=== PATIENT | male | born 1955 | race Caucasian/White ===

== ENCOUNTER 2021-06-12 09:42 | Inpatient (IN) ==
[2021-06-12 10:12] LABS: Basophils # 0.1 K/mcL (0.0-0.2); Basophils % 0.3 %; Eosinophils # 0.3 K/mcL (0.0-0.6); Eosinophils % 1.5 %; Hematocrit 51.3 % (37.5-50.1); Hemoglobin 16.9 g/dL (12.9-16.9); Immature Granulocytes % 0.9 % (0-4); Lymphocytes # 2.2 K/mcL (0.6-4.6); Lymphocytes % 12.4 %; Mean Corpuscular HGB Conc 32.9 g/dL (31.6-35.5); Mean Corpuscular Hemoglobin 30.2 pg (28.0-33.3); Mean Corpuscular Volume 91.6 fL (83.0-100.0); Monocytes # 1.4 K/mcL (0.0-1.3); Monocytes % 7.9 %; Neutrophils # 13.5 K/mcL (1.6-8.9); Platelet Count 193 K/mcL (140-400); Red Cell Distribution Width 14.6 % (11.5-14.5); White Blood Count 17.5 K/mcL (4.3-11.1)
[2021-06-12 10:30] LABS: BUN/Creatinine Ratio 21 (6-26); Blood Urea Nitrogen 29 mg/dL (8-23); Calcium 10.3 mg/dL (8.6-10.3); Carbon Dioxide 30 mEq/L (23-29); Chloride 100 mEq/L (98-107); Glucose 102 mg/dL (70-105); Osmolality,Calculated 288 (280-300); Potassium 4.9 mEq/L (3.5-5.1); Sodium 136 mEq/L (136-145); eGFR For African Americans > 60 (> 60); eGFR For Non-African Americans 50 (> 60)
[2021-06-12 10:37] LABS: Troponin I < 0.03 ng/mL (< 0.04)
[2021-06-12] MEDS ORDERED: *HR* FentaNYL (PF) 100 MCG/2 ML VIAL IVP ONE (11:28)
[2021-06-12] MEDS ORDERED: Acetaminophen 325 MG TABLET PO PRN (13:06)
[2021-06-12] MEDS ORDERED: Naloxone 0.4 MG/ML INJ IVP PRN (13:06)
[2021-06-12] MEDS ORDERED: Ondansetron 4 MG/2 ML VIAL IVP PRN (13:06)
[2021-06-12] MEDS ORDERED: Dextrose Gel 15 GM/37.5 ML TUBE PO PRN ×2 (13:12)
[2021-06-12] MEDS ORDERED: D5% in Water 1,000 ML IVC PRN (13:12)
[2021-06-12] MEDS ORDERED: *HR* Dextrose 50 % in Water (Vial) 50 ML VIAL IVP PRN (13:12)
[2021-06-12] MEDS ORDERED: Gadolinium Contrast Agent (WT Based) IV PRN (14:45)
[2021-06-12] MEDS ORDERED: *HR* LORazepam 2 MG/ML VIAL IVP ONE ×2 (15:02→18:45)
[2021-06-12] MEDS: Insulin LISPRO 300 UNITS/3 ML VIAL SUBQ SCH ×2 (18:02→20:46)
[2021-06-12] MEDS ORDERED: 0.9 % Sodium Chloride 1,000 ML IVC SCH (18:15)
[2021-06-12] MEDS: *HR* OxyCODONE/APAP 5/325 TABLET PO PRN (18:52)
[2021-06-12] MEDS ORDERED: GADOBUTROL 30 MMOL/30 ML VIAL IVP ONE (19:38)
[2021-06-12] MEDS: Ringers Solution, Lactated 1,000 ML IVC SCH (20:45)
[2021-06-13 05:32] LABS: Basophils # 0.1 K/mcL (0.0-0.2); Basophils % 0.6 %; Eosinophils # 0.5 K/mcL (0.0-0.6); Eosinophils % 3.3 %; Hematocrit 48.2 % (37.5-50.1); Hemoglobin 15.6 g/dL (12.9-16.9); Immature Granulocytes % 0.8 % (0-4); Lymphocytes # 2.6 K/mcL (0.6-4.6); Lymphocytes % 18.1 %; Mean Corpuscular HGB Conc 32.4 g/dL (31.6-35.5); Mean Corpuscular Hemoglobin 30.3 pg (28.0-33.3); Mean Corpuscular Volume 93.6 fL (83.0-100.0); Mean Platelet Volume 11.4 fL (9.4-12.4); Monocytes # 1.7 K/mcL (0.0-1.3); Monocytes % 11.8 %; Neutrophils # 9.3 K/mcL (1.6-8.9); Platelet Count 175 K/mcL (140-400); Red Blood Count 5.15 M/mcL (4.19-5.50); Red Cell Distribution Width 14.6 % (11.5-14.5); Segmented Neutrophils % 65.4 %; White Blood Count 14.2 K/mcL (4.3-11.1)
[2021-06-13 05:53] LABS: Calcium 9.9 mg/dL (8.6-10.3); Magnesium 1.9 mg/dL (1.6-2.6); Potassium 4.9 mEq/L (3.5-5.1)
[2021-06-13] MEDS: *HR* Enoxaparin 30 MG/0.3 ML SYRINGE SQ SCH (06:09)
[2021-06-13] MEDS: *HR* OxyCODONE/APAP 5/325 TABLET PO PRN ×3 (06:09→20:08)
[2021-06-13] MEDS: Ringers Solution, Lactated 1,000 ML IVC SCH (06:10)
[2021-06-13 08:59] LABS: Estimated Average Glucose 128 mg/dl; Hemoglobin A1C 6.1 %
[2021-06-13] MEDS ORDERED: Metoprolol XL (24 HR) Succ 50 MG TAB.ER.24H PO SCH (09:00)
[2021-06-13] MEDS: Insulin LISPRO 300 UNITS/3 ML VIAL SUBQ SCH ×4 (09:02→20:05)
[2021-06-13] MEDS: Aspirin 325 MG TABLET PO SCH (09:03)
[2021-06-13] MEDS ORDERED: 0.9 % Sodium Chloride 1,000 ML IVC SCH (09:15)
[2021-06-13] MEDS: Regadenoson 0.4 MG/5 ML SYRINGE IVP ONE ×2 (09:22→12:09)
[2021-06-13] MEDS: Nicotine 21 MG PATCH.TD24 TD SCH (13:26)
[2021-06-13 22:29] LABS: Bilirubin,Urine Negative (Negative); Blood,Urine Negative (Negative); Clarity,Urine Clear (Clear); Color,Urine Light-Yellow (Yellow); Glucose,Urine (UA) Normal (Normal); Ketones,Urine Negative (Negative); Leukocyte Esterase,Urine Small (Negative); Mucus,Urine Few per lpf (None-Few); Nitrite,Urine Negative (Negative); PH,Urine 5.5 pH Units (5.0-8.0); Protein,Urine Negative (Neg-Trace); RBC,Urine 0-3 per hpf (0-3); Specific Gravity,Urine 1.013 (1.010-1.025); Squamous Epithelial Cell,Urine Few per hpf (None-Few); Urobilinogen,Urine Normal (Normal); WBC,Urine 0-3 per hpf (0-3)
[2021-06-14 02:39] LABS: Hematocrit 44.6 % (37.5-50.1); Hemoglobin 14.5 g/dL (12.9-16.9); Mean Corpuscular HGB Conc 32.5 g/dL (31.6-35.5); Mean Corpuscular Hemoglobin 29.9 pg (28.0-33.3); Mean Platelet Volume 11.1 fL (9.4-12.4); Platelet Count 150 K/mcL (140-400); Red Blood Count 4.85 M/mcL (4.19-5.50); Red Cell Distribution Width 14.5 % (11.5-14.5); White Blood Count 11.6 K/mcL (4.3-11.1)
[2021-06-14] MEDS: *HR* OxyCODONE/APAP 5/325 TABLET PO PRN ×2 (02:55→11:47)
[2021-06-14 03:27] LABS: BUN/Creatinine Ratio 25 (6-26); Blood Urea Nitrogen 31 mg/dL (8-23); Calcium 9.4 mg/dL (8.6-10.3); Carbon Dioxide 27 mEq/L (23-29); Chloride 102 mEq/L (98-107); Glucose 96 mg/dL (70-105); Osmolality,Calculated 284 (280-300); Potassium 4.6 mEq/L (3.5-5.1); Sodium 134 mEq/L (136-145); eGFR For African Americans > 60 (> 60); eGFR For Non-African Americans 58 (> 60)
[2021-06-14 06:59] VITALS: O2SAT 93
[2021-06-14] MEDS: Insulin LISPRO 300 UNITS/3 ML VIAL SUBQ SCH (07:34)
[2021-06-14] MEDS: Aspirin 325 MG TABLET PO SCH (08:37)
[2021-06-14] MEDS: Nicotine 21 MG PATCH.TD24 TD SCH (08:37)
[2021-06-14] MEDS: *HR* Enoxaparin 30 MG/0.3 ML SYRINGE SQ SCH (08:38)
[2021-06-14 10:40] VITALS: BP 118/78; PULSE 76; TEMP 98.1
== END 2021-06-14 12:35 | disposition home or self-care (01) | DRG 558 ==
LOC: 3BNU 09:42 → EMEROOARM 09:42 → SUATTDRO 12:38 → 3BNU 13:10
PROVIDERS: ADMIT Pharmacist; ATTEND Registered Nurse

== ENCOUNTER 2021-07-28 19:19 | Inpatient (IN) ==
[2021-07-28 20:40] LABS: Hematocrit 49.4 % (37.5-50.1); Hemoglobin 16.4 g/dL (12.9-16.9); Mean Corpuscular HGB Conc 33.2 g/dL (31.6-35.5); Mean Corpuscular Hemoglobin 29.8 pg (28.0-33.3); Mean Corpuscular Volume 89.8 fL (83.0-100.0); Mean Platelet Volume 11.2 fL (9.4-12.4); Nucleated Red Blood Cells 0.1 /100 WBC (0); Platelet Count 203 K/mcL (140-400); Red Cell Distribution Width 14.9 % (11.5-14.5); White Blood Count 20.4 K/mcL (4.3-11.1)
[2021-07-28 20:47] LABS: INR 1.4; Prothrombin Time 15.3 Seconds (9.4-12.1)
[2021-07-28 20:50] LABS: Activated Partial Thrombo Time 24.1 Seconds (26.0-36.0)
[2021-07-28] MEDS ORDERED: Isovue-370 500 ML BOTTLE IVP ONE (20:57)
[2021-07-28 21:02] LABS: BUN/Creatinine Ratio 30 (6-26); Blood Urea Nitrogen 39 mg/dL (8-23); Calcium 11.3 mg/dL (8.6-10.3); Carbon Dioxide 30 mEq/L (23-29); Chloride 98 mEq/L (98-107); Glucose 110 mg/dL (70-105); Osmolality,Calculated 292 (280-300); Potassium 4.5 mEq/L (3.5-5.1); Sodium 136 mEq/L (136-145); eGFR For African Americans > 60 (> 60); eGFR For Non-African Americans 54 (> 60)
[2021-07-28 21:13] LABS: Lymphocytes # 5.3 K/mcL (0.6-4.6); Monocytes # 0.4 K/mcL (0.0-1.3); Neutrophils # 14.7 K/mcL (1.6-8.9)
[2021-07-28 21:14] LABS: Large Platelets Present (Not Present); Reactive Lymphocytes Present (Not Present); Smudge Cells Present (Not Present)
[2021-07-28 21:16] LABS: Influenza A PCR Negative (Negative); Influenza B PCR Negative (Negative); Resp. Syncytial Virus PCR Negative (Negative)
[2021-07-28 21:23] LABS: SARS-CoV-2 by PCR (In House) Negative (Negative)
[2021-07-28 21:40] LABS: Thyroid Stimulating Hormone 1.723 mcIU/mL (0.340-5.600)
[2021-07-28] MEDS ORDERED: *HR* Metoprolol 5 MG/5 ML VIAL IVP ONE (22:31)
[2021-07-28] MEDS ORDERED: Morphine Sulfate 2 MG/ML SYRINGE IVP ONE (22:32)
[2021-07-28] MEDS ORDERED: Vancomycin 2,000 MG/520 ML IV.SOLN IVPB ONE (23:00)
[2021-07-28] MEDS ORDERED: *HR* Heparin 5,000 UNIT/ML VIAL IVP ONE (23:10)
[2021-07-28] MEDS ORDERED: *HR* Heparin 5,000 UNIT/ML VIAL IVP PRN ×2 (23:10)
[2021-07-28] MEDS: Heparin 25,000UNIT/250ML 1/2NS 25,000 UNIT/250 ML IV.SOLN IVC SCH (23:21)
[2021-07-28] MEDS ORDERED: Cefepime HCl 2,000 MG in Water for inj. (sterile) 20 ML IVP ONE (23:30)
[2021-07-29 00:21] LABS: INR 1.4; Prothrombin Time 15.7 Seconds (9.4-12.1)
[2021-07-29 00:28] LABS: Heparin anti-factor XA UFH 1.68 IU/mL (0.30-0.70)
[2021-07-29] MEDS ORDERED: Ondansetron 4 MG/2 ML VIAL IVP PRN (01:18)
[2021-07-29] MEDS ORDERED: Naloxone 0.4 MG/ML INJ IVP PRN (01:18)
[2021-07-29] MEDS ORDERED: Melatonin 3 MG TABLET PO PRN (01:18)
[2021-07-29] MEDS ORDERED: Acetaminophen 325 MG TABLET PO PRN (01:18)
[2021-07-29] MEDS ORDERED: Albuterol 2.5 MG/3 ML NEBULIZER IH PRN (02:19)
[2021-07-29] MEDS ORDERED: Perflutren Lipid Microsphere 1.3 ML in 0.9 % Sodium Chloride 8.7 ML IVP PRN (02:57)
[2021-07-29] MEDS: Ipratropium/Albuterol Neb 3 ML IH SCH ×4 (03:31→21:26)
[2021-07-29] MEDS ORDERED: Morphine Sulfate 2 MG/ML SYRINGE IVP PRN (04:00)
[2021-07-29] MEDS ORDERED: *HR* Metoprolol 5 MG/5 ML VIAL IVP ONE ×2 (04:32→10:39)
[2021-07-29 07:44] LABS: Hemoglobin 15.1 g/dL (12.9-16.9); Mean Corpuscular HGB Conc 32.8 g/dL (31.6-35.5); Mean Corpuscular Hemoglobin 29.3 pg (28.0-33.3); Mean Corpuscular Volume 89.1 fL (83.0-100.0); Mean Platelet Volume 11.6 fL (9.4-12.4); Nucleated Red Blood Cells 0.1 /100 WBC (0); Platelet Count 161 K/mcL (140-400); Red Blood Count 5.16 M/mcL (4.19-5.50); Red Cell Distribution Width 14.8 % (11.5-14.5); White Blood Count 19.5 K/mcL (4.3-11.1)
[2021-07-29 08:28] LABS: Lymphocytes # 2.3 K/mcL (0.6-4.6); Monocytes # 1.2 K/mcL (0.0-1.3); Platelet Estimate Normal (Normal)
[2021-07-29] MEDS: predniSONE 20 MG TABLET PO SCH (09:13)
[2021-07-29] MEDS: Benzonatate 100 MG CAPSULE PO PRN ×2 (09:13→14:57)
[2021-07-29 09:17] LABS: Estimated Average Glucose 140 mg/dl; Hemoglobin A1C 6.5 %
[2021-07-29] MEDS: *HR* HYDROcodone/Acet 5/325 mg TABLET PO PRN ×3 (09:24→21:00)
[2021-07-29 09:57] LABS: Alanine Aminotransferase 153 Units/L (7-52); Albumin 3.1 g/dL (3.5-5.7); Alkaline Phosphatase 426 Units/L (34-104); Aspartate Amino Transferase 131 Units/L (13-39); BUN/Creatinine Ratio 36 (6-26); Blood Urea Nitrogen 43 mg/dL (8-23); Calcium 10.9 mg/dL (8.6-10.3); Carbon Dioxide 27 mEq/L (23-29); Chloride 104 mEq/L (98-107); Glucose 82 mg/dL (70-105); Lactate Dehydrogenase 920 Units/L (140-271); Magnesium 2.1 mg/dL (1.6-2.6); Osmolality,Calculated 296 (280-300); Phosphorous 3.5 mg/dL (2.7-4.5); Potassium 5.4 mEq/L (3.5-5.1); Sodium 138 mEq/L (136-145); Total Protein 6.1 g/dL (6.4-8.9); eGFR For African Americans > 60 (> 60); eGFR For Non-African Americans > 60 (> 60)
[2021-07-29] MEDS ORDERED: Vancomycin 1,250 MG/262.5 ML IV.SOLN IVPB SCH (12:00)
[2021-07-29] MEDS ORDERED: Cefepime HCl 2,000 MG in Water for inj. (sterile) 20 ML IVP SCH (12:00)
[2021-07-29] MEDS: cefTRIAXone 1,000 MG in Water for inj. (sterile) 10 ML IVP SCH (12:45)
[2021-07-29] MEDS: Azithromycin 250 MG TABLET PO SCH (12:45)
[2021-07-29] MEDS: Aspirin 81 MG TAB.CHEW PO SCH (18:39)
[2021-07-29] MEDS: Heparin 25,000UNIT/250ML 1/2NS 25,000 UNIT/250 ML IV.SOLN IVC SCH (18:40)
[2021-07-30] MEDS: Nicotine 21 MG PATCH.TD24 TD SCH ×2 (00:58→20:00)
[2021-07-30] MEDS: *HR* HYDROcodone/Acet 5/325 mg TABLET PO PRN ×3 (01:00→08:56)
[2021-07-30] MEDS: Ipratropium/Albuterol Neb 3 ML IH SCH ×4 (03:40→23:32)
[2021-07-30 04:43] LABS: Hematocrit 43.4 % (37.5-50.1); Hemoglobin 14.4 g/dL (12.9-16.9); Mean Corpuscular HGB Conc 33.2 g/dL (31.6-35.5); Mean Corpuscular Hemoglobin 30.2 pg (28.0-33.3); Mean Platelet Volume 11.6 fL (9.4-12.4); Nucleated Red Blood Cells 0.1 /100 WBC (0); Platelet Count 178 K/mcL (140-400); Red Blood Count 4.77 M/mcL (4.19-5.50); Red Cell Distribution Width 14.9 % (11.5-14.5); White Blood Count 17.4 K/mcL (4.3-11.1)
[2021-07-30 05:14] LABS: Troponin I 0.09 ng/mL (< 0.04)
[2021-07-30] MEDS ORDERED: Morphine Sulfate 2 MG/ML SYRINGE IVP ONE (05:19)
[2021-07-30 05:20] LABS: Lymphocytes # 1.7 K/mcL (0.6-4.6); Macrocytosis Present (Not Present); Neutrophils # 13.9 K/mcL (1.6-8.9); Platelet Estimate Normal (Normal)
[2021-07-30 05:21] LABS: Reactive Lymphocytes Present (Not Present)
[2021-07-30 05:29] LABS: Alanine Aminotransferase 138 Units/L (7-52); Albumin 3.1 g/dL (3.5-5.7); Albumin/Globulin Ratio 1.1 (1.1-2.2); Alkaline Phosphatase 407 Units/L (34-104); Aspartate Amino Transferase 119 Units/L (13-39); BUN/Creatinine Ratio 32 (6-26); Bilirubin,Direct 0.1 mg/dL (0.0-0.2); Bilirubin,Indirect 0.8 mg/dL (0.0-1.0); Bilirubin,Total 0.9 mg/dL (0.3-1.0); Blood Urea Nitrogen 38 mg/dL (8-23); Calcium 10.6 mg/dL (8.6-10.3); Carbon Dioxide 30 mEq/L (23-29); Chloride 101 mEq/L (98-107); Globulin 2.9 g/dL (2.4-3.5); Glucose 71 mg/dL (70-105); Osmolality,Calculated 292 (280-300); Phosphorous 3.4 mg/dL (2.7-4.5); Potassium 4.8 mEq/L (3.5-5.1); Sodium 137 mEq/L (136-145); eGFR For African Americans > 60 (> 60); eGFR For Non-African Americans > 60 (> 60)
[2021-07-30] MEDS ORDERED: Isovue-370 500 ML BOTTLE IVP ONE (08:26)
[2021-07-30] MEDS: Benzonatate 100 MG CAPSULE PO PRN (08:47)
[2021-07-30] MEDS: Aspirin 81 MG TAB.CHEW PO SCH (08:47)
[2021-07-30] MEDS: predniSONE 20 MG TABLET PO SCH (08:47)
[2021-07-30] MEDS: cefTRIAXone 1,000 MG in Water for inj. (sterile) 10 ML IVP SCH (08:47)
[2021-07-30] MEDS: Azithromycin 250 MG TABLET PO SCH (08:48)
[2021-07-30] MEDS ORDERED: *HR* LORazepam 2 MG/ML VIAL IVP ONE ×3 (13:04→15:56)
[2021-07-30] MEDS ORDERED: *HR* LORazepam 2 MG/ML VIAL IVP PRN ×2 (14:14→18:00)
[2021-07-30] MEDS ORDERED: Gadolinium Contrast Agent (WT Based) IV PRN (14:16)
[2021-07-30] MEDS ORDERED: Naloxone 0.4 MG/ML INJ ONE (14:21)
[2021-07-30] MEDS ORDERED: *HR* LORazepam 2 MG/ML VIAL ONE (14:23)
[2021-07-30] MEDS ORDERED: *HR* Metoprolol 5 MG/5 ML VIAL IVP ONE ×4 (14:35→15:31)
[2021-07-30] MEDS: Heparin 25,000UNIT/250ML 1/2NS 25,000 UNIT/250 ML IV.SOLN IVC SCH (15:37)
[2021-07-30] MEDS ORDERED: Dexamethasone Sodium Phos/PF 10 MG/ML VIAL IVP STA (15:49)
[2021-07-30 16:10] LABS: ABG Base Excess -3 mEq/L (-2 to 3); ABG HCO3 26 mEq/L (21-27); ABG Oxygen Saturation 97 % (95-98); ABG PCO2 56 mmHg (35-45); ABG PH 7.27 pH Units (7.32-7.45); ABG PO2 100 mmHg (85-104); ABG TCO2 27 mEq/L (20-26)
[2021-07-30 18:30] LABS: Hematocrit 44.1 % (37.5-50.1); Hemoglobin 14.5 g/dL (12.9-16.9); Mean Corpuscular HGB Conc 32.9 g/dL (31.6-35.5); Mean Corpuscular Volume 91.3 fL (83.0-100.0); Mean Platelet Volume 11.4 fL (9.4-12.4); Nucleated Red Blood Cells 0.1 /100 WBC (0); Platelet Count 176 K/mcL (140-400); Red Blood Count 4.83 M/mcL (4.19-5.50); Red Cell Distribution Width 14.8 % (11.5-14.5); White Blood Count 17.9 K/mcL (4.3-11.1)
[2021-07-30 19:08] LABS: Platelet Estimate Normal (Normal)
[2021-07-30 19:10] LABS: Lymphocytes # 1.8 K/mcL (0.6-4.6); Monocytes # 1.1 K/mcL (0.0-1.3)
[2021-07-30 19:22] LABS: Alanine Aminotransferase 117 Units/L (7-52); Alkaline Phosphatase 395 Units/L (34-104); Aspartate Amino Transferase 99 Units/L (13-39); BUN/Creatinine Ratio 30 (6-26); Bilirubin,Total 0.9 mg/dL (0.3-1.0); Blood Urea Nitrogen 36 mg/dL (8-23); Calcium 10.7 mg/dL (8.6-10.3); Carbon Dioxide 30 mEq/L (23-29); Chloride 103 mEq/L (98-107); Creatine Kinase 273 Units/L (30-223); Globulin 2.9 g/dL (2.4-3.5); Glucose 114 mg/dL (70-105); Osmolality,Calculated 295 (280-300); Potassium 5.2 mEq/L (3.5-5.1); Sodium 138 mEq/L (136-145); Total Protein 5.9 g/dL (6.4-8.9); Troponin I 0.07 ng/mL (< 0.04); eGFR For African Americans > 60 (> 60); eGFR For Non-African Americans > 60 (> 60)
[2021-07-30] MEDS: Sennosides/Docusate Sodium TABLET PO SCH (19:44)
[2021-07-30 19:59] LABS: ABG Base Excess 3 mEq/L (-2 to 3); ABG HCO3 31 mEq/L (21-27); ABG Oxygen Saturation 99 % (95-98); ABG PCO2 59 mmHg (35-45); ABG PH 7.32 pH Units (7.32-7.45); ABG PO2 160 mmHg (85-104); ABG TCO2 32 mEq/L (20-26)
[2021-07-30] MEDS ORDERED: Zoledronic Acid (Zometa) 4 MG in 0.9 % Sodium Chloride 100 ML IV ONE (21:00)
[2021-07-31] MEDS ORDERED: *HR* LORazepam 2 MG/ML VIAL IVP ONE (00:05)
[2021-07-31] MEDS: *HR* Metoprolol 5 MG/5 ML VIAL IVP SCH ×2 (00:13→05:44)
[2021-07-31] MEDS: Dexamethasone Sodium Phos/PF 10 MG/ML VIAL IVP SCH ×3 (00:21→15:58)
[2021-07-31 02:30] LABS: Hematocrit 43.6 % (37.5-50.1); Hemoglobin 14.5 g/dL (12.9-16.9); Mean Corpuscular HGB Conc 33.3 g/dL (31.6-35.5); Mean Corpuscular Hemoglobin 30.1 pg (28.0-33.3); Mean Corpuscular Volume 90.6 fL (83.0-100.0); Mean Platelet Volume 11.4 fL (9.4-12.4); Platelet Count 166 K/mcL (140-400); Red Blood Count 4.81 M/mcL (4.19-5.50); Red Cell Distribution Width 14.9 % (11.5-14.5); White Blood Count 18.2 K/mcL (4.3-11.1)
[2021-07-31 03:03] LABS: Troponin I 0.08 ng/mL (< 0.04)
[2021-07-31 03:04] LABS: BUN/Creatinine Ratio 38 (6-26); Blood Urea Nitrogen 38 mg/dL (8-23); Calcium 10.9 mg/dL (8.6-10.3); Carbon Dioxide 28 mEq/L (23-29); Chloride 105 mEq/L (98-107); Glucose 104 mg/dL (70-105); Magnesium 2.3 mg/dL (1.6-2.6); Osmolality,Calculated 295 (280-300); Phosphorous 4.3 mg/dL (2.7-4.5); Potassium 5.5 mEq/L (3.5-5.1); Sodium 138 mEq/L (136-145); eGFR For African Americans > 60 (> 60); eGFR For Non-African Americans > 60 (> 60)
[2021-07-31] MEDS: Ipratropium/Albuterol Neb 3 ML IH SCH ×4 (03:57→20:33)
[2021-07-31] MEDS: cefTRIAXone 1,000 MG in Water for inj. (sterile) 10 ML IVP SCH (08:20)
[2021-07-31] MEDS: Sennosides/Docusate Sodium TABLET PO SCH ×2 (08:36→19:48)
[2021-07-31] MEDS: Azithromycin 250 MG TABLET PO SCH (08:36)
[2021-07-31] MEDS: predniSONE 20 MG TABLET PO SCH (08:37)
[2021-07-31] MEDS: Aspirin 81 MG TAB.CHEW PO SCH (08:42)
[2021-07-31] MEDS: Morphine Sulfate Oral CONC 10 MG/0.5 ML ORAL.SYG SL PRN (16:01)
[2021-07-31] MEDS: Nicotine 21 MG PATCH.TD24 TD SCH (19:49)
[2021-07-31] MEDS: *HR* LORazepam Oral Conc 2 MG/ML SL PRN (23:10)
[2021-08-01] MEDS: Dexamethasone Sodium Phos/PF 10 MG/ML VIAL IVP SCH ×2 (00:13→07:39)
[2021-08-01] MEDS: Ipratropium/Albuterol Neb 3 ML IH SCH ×2 (03:26→11:09)
[2021-08-01 06:22] LABS: Hematocrit 46.2 % (37.5-50.1); Hemoglobin 15.2 g/dL (12.9-16.9); Mean Corpuscular HGB Conc 32.9 g/dL (31.6-35.5); Mean Corpuscular Hemoglobin 30.2 pg (28.0-33.3); Mean Corpuscular Volume 91.7 fL (83.0-100.0); Platelet Count 166 K/mcL (140-400); Red Blood Count 5.04 M/mcL (4.19-5.50); Red Cell Distribution Width 15.2 % (11.5-14.5); White Blood Count 20.9 K/mcL (4.3-11.1)
[2021-08-01 06:43] LABS: BUN/Creatinine Ratio 40 (6-26); Blood Urea Nitrogen 47 mg/dL (8-23); Calcium 10.1 mg/dL (8.6-10.3); Carbon Dioxide 25 mEq/L (23-29); Chloride 104 mEq/L (98-107); Glucose 107 mg/dL (70-105); Osmolality,Calculated 297 (280-300); Phosphorous 2.2 mg/dL (2.7-4.5); Potassium 4.8 mEq/L (3.5-5.1); Sodium 137 mEq/L (136-145); eGFR For African Americans > 60 (> 60); eGFR For Non-African Americans > 60 (> 60)
[2021-08-01 07:35] VITALS: BP 120/85; PULSE 112; TEMP 98.4
[2021-08-01] MEDS: Sennosides/Docusate Sodium TABLET PO SCH (07:38)
[2021-08-01] MEDS: Azithromycin 250 MG TABLET PO SCH (07:38)
[2021-08-01] MEDS: predniSONE 20 MG TABLET PO SCH (07:39)
[2021-08-01] MEDS: Morphine Sulfate Oral CONC 10 MG/0.5 ML ORAL.SYG SL PRN (07:43)
[2021-08-01] MEDS: *HR* LORazepam Oral Conc 2 MG/ML SL PRN (09:34)
[2021-08-01] MEDS ORDERED: Morphine Sulfate Oral CONC 10 MG/0.5 ML ORAL.SYG SL PRN ×2 (09:35→09:54)
[2021-08-01] MEDS ORDERED: *HR* FentaNYL (PF) 100 MCG/2 ML VIAL IVP PRN (09:47)
[2021-08-01] MEDS ORDERED: *HR* LORazepam Oral Conc 2 MG/ML SL PRN (09:52)
[2021-08-01 09:56] LABS: Magnesium 2.2 mg/dL (1.6-2.6)
[2021-08-01 11:12] VITALS: O2SAT 92
== END 2021-08-01 13:05 | disposition hospice, home (50) | DRG 180 ==
LOC: 2ANU 19:19 → EMEROOARM 19:19 → SUATTDRO 23:15 → 2ANU 07-29 02:17 → SUATTDRO 07-29 12:07 → 2NNU 07-30 15:41 → 3NENU 07-31 09:57
PROVIDERS: ADMIT Internal Medicine; ATTEND Hospitalist